=== PATIENT | male | born 1945 | race African-American/Black ===

== ENCOUNTER 2018-02-26 15:19 | Inpatient (IN) ==
[2018-02-26] MEDS ORDERED: Morphine Sulfate Inj 2 MG/ML Vial IV.PUSH ONE (15:46)
[2018-02-26] MEDS ORDERED: Morphine Inj 4 MG/ML Vial IV.PUSH ONE (16:00)
--- NOTE | 2018-02-26 16:07 | ED ---
HPI General Chief Complaint: Fall Stated Complaint: Fall Injury,Evac Time Seen by Provider: 02/26/18 15:28 Source: patient and RN notes reviewed Mode of arrival: ambulatory Limitations: no limitations History of Present Illness HPI Narrative: 72-year-old male presents to the emergency department for evaluation of right hip injury. Patient states he was discharged from [facility] today around 12 PM. He states he had stents placed in his left leg. He states that when he got home he went on to get the mail and he tripped and fell on the way to get to the mail and fell on his right hip, catching himself with his right wrist. He denies any head injury LOC. He denies any neck pain or back pain. No chest pain or abdominal pain. No vomiting. Current pain is 10/10 to the right hip. He denies any previous injury to the hip. He states that he is due to have stents placed in the right leg next. He states he was recently diagnosed with a foot drop. Moderate severity. Related Data Allergies Allergy/AdvReac Type Severity Reaction Status Date / Time No Known Allergies Allergy Verified 02/27/18 13:44 Review of Systems ROS: all other systems reviewed are negative [facility] Medical History Medical History Foot drop (Acute) Surgical History Surgical History S/P insertion of iliac artery stent (Acute) Family History Family History Other Breast cancer Diabetes Social History Social History Substance History: No History of Abuse Second Hand Smoke Exposure: No Smoking Status: Former smoker Tobacco Type: Cigarettes How Often Do You Have a Drink Containing Alcohol: Never Recent Travel in [facility] within the Last 8 Weeks: No Recent Out of Country Travel within the Last 8 Weeks: No Immunization History Tetanus Immunization: Unsure Exam Narrative Exam Narrative: GENERAL: Well-nourished, well-developed male patient, afebrile SKIN: Focused skin assessment warm/dry. HEAD: Normocephalic. Atraumatic EYES: No scleral icterus. No injection or drainage. NECK: Supple, trachea midline. No JVD or lymphadenopathy. CARDIOVASCULAR: Regular rate and rhythm without murmurs, gallops, or rubs. Right pedal pulse is 2+ RESPIRATORY: Breath sounds equal bilaterally. No accessory muscle use. Lung sounds are clear to auscultation GASTROINTESTINAL: Abdomen soft, non-tender, nondistended. MUSCULOSKELETAL: No cyanosis, or edema. Patient has tenderness over right hip to palpation BACK: Nontender without obvious deformity. No CVA tenderness. Course Initial Documented Vital Signs Temperature 99.0 F 02/26/18 15:24 Pulse Rate 74 02/26/18 15:24 Respiratory Rate 16 02/26/18 15:24 Blood Pressure 120/61 02/26/18 15:24 Pulse Oximetry 100 02/26/18 15:24 Last Documented Vital Signs Temperature 98.2 F 02/28/18 04:00 Pulse Rate 77 02/28/18 06:00 Respiratory Rate 23 02/28/18 04:00 Blood Pressure 100/50 L 02/28/18 04:00 Pulse Oximetry 95 02/28/18 04:00 Medical Decision Making RAMÓN Attestation RAMÓN supervised visit: Yes Attestation: Patient was not seen by me or presented by advance practitioner, I was available for consult MDM Narrative Medical decision making narrative: 72-year-old male presents to the emergency department for evaluation of trip and fall, right hip injury. He was just released today from [facility] after having stents placed to his left leg. X-ray of the pelvis, right femur, right wrist are ordered and pending. X-ray of the pelvis shows moderately angulated basicervical right femoral neck fracture. X-ray of the right femur shows acute displaced and angulated basicervical right proximal femur fracture. X-ray of the right wrist no acute fracture or dislocation. EKG, CBC, CMP, PTT, PT/INR, chest x-ray are ordered and pending. Dr. Batista accepted admission. I spoke to Dr. Joe, orthopedic surgery on- call who would like the patient be admitted to medicine, n.p.o. after midnight. Medical Screen Exam Complete: Yes Emergency Medical Condition: Yes Differential Diagnosis Differential Diagnosis: hip fracture vs. dislocation vs. contusion Medical Records Medical records reviewed: Yes I reviewed the patient's medical records. Lab Data Result diagrams: 02/27/18 07:03 02/27/18 07:03 Lab Results 02/26/18 02/26/18 02/26/18 Range/Units 17:15 17:15 17:15 WBC 7.2 (4.0-11.0) th/mm3 RBC 3.63 L (4.50-5.90) mil/mm3 Hgb 12.2 L (13.0-17.0) gm/dL Hct 35.7 L (39.0-51.0) % MCV 98.3 (80.0-100.0) fL MCH 33.6 (27.0-34.0) pg MCHC 34.2 (32.0-36.0) % RDW 15.5 (11.6-17.2) % Plt Count 151 (150-450) th/mm3 MPV 8.6 (7.0-11.0) fL Neut % (Auto) 75.2 H (16.0-70.0) % Lymph % (Auto) 12.8 (9.0-44.0) % Perry % (Auto) 11.3 H (0.0-8.0) % Eos % (Auto) 0.4 (0.0-4.0) % Baso % (Auto) 0.3 (0.0-2.0) % Neut # (Auto) 5.4 (1.8-7.7) th/mm3 Lymph # (Auto) 0.9 L (1.0-4.8) th/mm3 Perry # (Auto) 0.8 (0.0-0.9) th/mm3 Eos # (Auto) 0.0 (0.0-0.4) th/mm3 Baso # (Auto) 0.0 (0.0-0.2) th/mm3 WBC Differential . Differential Comment Auto diff final PT 10.3 (9.8-11.6) sec INR 1.0 Ratio APTT (23.4-31.7) sec Sodium 137 (136-145) meq/L Potassium 3.5 (3.5-5.1) meq/L Chloride 104 (98-107) meq/L Carbon Dioxide 25.0 (21.0-32.0) meq/L Anion Gap 8 (5-15) meq/L BUN 8 (7-18) mg/dL Creatinine 0.77 (0.60-1.30) mg/dL Estimated GFR Greater than 89 (>89) mL/min Random Glucose 88 (74-106) mg/dL Calcium 8.3 L (8.5-10.1) mg/dL Magnesium 2.0 (1.5-2.5) mg/dL Total Bilirubin 0.6 (0.2-1.0) mg/dL AST 36 (15-37) U/L ALT 20 (12-78) U/L Alkaline Phosphatase 71 (45-117) U/L Total Protein 6.6 (6.4-8.2) g/dL Albumin 2.7 L (3.4-5.0) g/dL Nasal Screen MRSA (PCR) (Negative) Blood Type Blood Type Recheck Antibody Screen MTS Gel Crossmatch 02/26/18 02/27/18 02/27/18 Range/Units 17:15 07:03 07:03 WBC 5.6 (4.0-11.0) th/mm3 RBC 3.43 L (4.50-5.90) mil/mm3 Hgb 11.7 L (13.0-17.0) gm/dL Hct 33.8 L (39.0-51.0) % MCV 98.3 (80.0-100.0) fL MCH 34.0 (27.0-34.0) pg MCHC 34.6 (32.0-36.0) % RDW 15.1 (11.6-17.2) % Plt Count 164 (150-450) th/mm3 MPV 7.7 (7.0-11.0) fL Neut % (Auto) 71.1 H (16.0-70.0) % Lymph % (Auto) 16.5 (9.0-44.0) % Perry % (Auto) 10.8 H (0.0-8.0) % Eos % (Auto) 1.1 (0.0-4.0) % Baso % (Auto) 0.5 (0.0-2.0) % Neut # (Auto) 4.0 (1.8-7.7) th/mm3 Lymph # (Auto) 0.9 L (1.0-4.8) th/mm3 Perry # (Auto) 0.6 (0.0-0.9) th/mm3 Eos # (Auto) 0.1 (0.0-0.4) th/mm3 Baso # (Auto) 0.0 (0.0-0.2) th/mm3 WBC Differential . Differential Comment Auto diff final PT (9.8-11.6) sec INR Ratio APTT 27.9 (23.4-31.7) sec Sodium 138 (136-145) meq/L Potassium 3.2 L (3.5-5.1) meq/L Chloride 106 (98-107) meq/L Carbon Dioxide 27.2 (21.0-32.0) meq/L Anion Gap 5 (5-15) meq/L BUN 9 (7-18) mg/dL Creatinine 0.68 (0.60-1.30) mg/dL Estimated GFR Greater than 89 (>89) mL/min Random Glucose 93 (74-106) mg/dL Calcium 8.6 (8.5-10.1) mg/dL Magnesium (1.5-2.5) mg/dL Total Bilirubin 0.6 (0.2-1.0) mg/dL AST 20 (15-37) U/L ALT 16 (12-78) U/L Alkaline Phosphatase 71 (45-117) U/L Total Protein 6.5 (6.4-8.2) g/dL Albumin 2.5 L (3.4-5.0) g/dL Nasal Screen MRSA (PCR) (Negative) Blood Type Blood Type Recheck Antibody Screen MTS Gel Crossmatch 02/27/18 02/27/18 02/27/18 Range/Units 07:03 15:15 22:00 WBC (4.0-11.0) th/mm3 RBC (4.50-5.90) mil/mm3 Hgb (13.0-17.0) gm/dL Hct (39.0-51.0) % MCV (80.0-100.0) fL MCH (27.0-34.0) pg MCHC (32.0-36.0) % RDW (11.6-17.2) % Plt Count (150-450) th/mm3 MPV (7.0-11.0) fL Neut % (Auto) (16.0-70.0) % Lymph % (Auto) (9.0-44.0) % Perry % (Auto) (0.0-8.0) % Eos % (Auto) (0.0-4.0) % Baso % (Auto) (0.0-2.0) % Neut # (Auto) (1.8-7.7) th/mm3 Lymph # (Auto) (1.0-4.8) th/mm3 Perry # (Auto) (0.0-0.9) th/mm3 Eos # (Auto) (0.0-0.4) th/mm3 Baso # (Auto) (0.0-0.2) th/mm3 WBC Differential Differential Comment PT (9.8-11.6) sec INR Ratio APTT (23.4-31.7) sec Sodium (136-145) meq/L Potassium (3.5-5.1) meq/L Chloride (98-107) meq/L Carbon Dioxide (21.0-32.0) meq/L Anion Gap (5-15) meq/L BUN (7-18) mg/dL Creatinine (0.60-1.30) mg/dL Estimated GFR (>89) mL/min Random Glucose (74-106) mg/dL Calcium (8.5-10.1) mg/dL Magnesium (1.5-2.5) mg/dL Total Bilirubin (0.2-1.0) mg/dL AST (15-37) U/L ALT (12-78) U/L Alkaline Phosphatase (45-117) U/L Total Protein (6.4-8.2) g/dL Albumin (3.4-5.0) g/dL Nasal Screen MRSA (PCR) Not detected (Negative) Blood Type O Positive Blood Type Recheck Required Antibody Screen Negative MTS Gel Crossmatch See Detail Imaging Data Radiologist's impression: Femur X-Ray 02/26/18 15:46 CONCLUSION: Acute displaced and angulated basicervical right proximal femur fracture. Pelvis X-Ray 02/26/18 15:46 CONCLUSION: Moderately angulated basicervical right femoral neck fracture Wrist X-Ray 02/26/18 15:46 CONCLUSION: 1. No acute fracture or dislocation. 2. Mild degenerative changes involving the radiocarpal space. Chest X-Ray 02/26/18 17:03 CONCLUSION: No acute cardiopulmonary findings. Hip X-Ray 02/27/18 00:00 CONCLUSION: 1. Right hip arthroplasty in anatomic alignment without acute fracture. Hip CT 02/27/18 06:12 CONCLUSION: 1. Acute comminuted mildly displaced fracture involving the neck of the right proximal femur. 2. Mild soft tissue swelling involving the left groin. Discharge Plan Discharge Disposition Patient Disposition: ED Admit(ED Internal Use Only) Discharge Order Discharge Orders: ED Use Only Admit Order (Routine); Ordered 02/26/18 Ordered By: Diana Valdez Discharge Details Diagnosis: Closed fracture of proximal end of right femur Physicians Team ED Provider: Bertin Quintero ED Midlevel Provider: Diana Valdez Primary Care Provider: [facility] Attending Provider: Judah Guerrero Other Providers: Jodie Joe Status ED Status: Left Department Discharge Information Discharge Date/Time: 02/26/18 20:01
--- NOTE | 2018-02-26 16:59 | XR ---
EXAM DATE: 02/26/2018 4:48 PM EST AGE/SEX: 72 years / Male INDICATIONS: Pain in right hip. Post fall this afternoon. CLINICAL DATA: This is the patient's initial encounter. Patient reports that signs and symptoms have been present for 1 day and indicates a pain score of 7/10. MEDICAL/SURGICAL HISTORY: None. None. COMPARISON: [facility], XR PELVIS AP, 12/26/2017. . FINDINGS: There is a moderately angulated basicervical right femoral neck fracture. The right femoral head is n ormally situated in the acetabulum. The contralateral left hip is intact. No displaced pelvic fractur e is identified. There is degenerative change in the spine and hips. Atherosclerotic vascular calcifi cations and previous left iliac stenting. Surgical clips overlying the left groin. CONCLUSION: Moderately angulated basicervical right femoral neck fracture Electronically signed by: Herson Dhaliwal MD Board Certified Radiologist 02/26/2018 4:57 PM EST
--- NOTE | 2018-02-26 17:05 | XR ---
EXAM DATE: 02/26/2018 4:52 PM EST AGE/SEX: 72 years / Male INDICATIONS: Pain in right hip. Post fall this afternoon. CLINICAL DATA: This is the patient's initial encounter. Patient reports that signs and symptoms have been present for 1 day and indicates a pain score of 7/10. MEDICAL/SURGICAL HISTORY: None. None. [place] [facility] [place] [facility] [place]. . FINDINGS: There is an acute displaced and angulated basicervical right proximal femur fracture. CONCLUSION: Acute displaced and angulated basicervical right proximal femur fracture. Electronically signed by: Silvestre Pascal MD Board Certified Radiologist 02/26/2018 5:04 PM EST
--- NOTE | 2018-02-26 17:13 | XR ---
EXAM DATE: 02/26/2018 4:49 PM EST AGE/SEX: 72 years / Male INDICATIONS: Pain in right wrist post fall this afternoon. CLINICAL DATA: This is the patient's initial encounter. Patient reports that signs and symptoms have been present for 1 day and indicates a pain score of 3/10. MEDICAL/SURGICAL HISTORY: None. None. COMPARISON: No prior exams available for comparison. FINDINGS: Bony structures are intact and in normal alignment. Mild degenerative changes are noted involving the radiocarpal space. Osseous density is normal. Soft tissues are unremarkable. No radiopaque foreign bodies seen. CONCLUSION: 1. No acute fracture or dislocation. 2. Mild degenerative changes involving the radiocarpal space. Electronically signed by: Silvestre Pascal MD Board Certified Radiologist 02/26/2018 5:12 PM EST
--- NOTE | 2018-02-26 17:26 | XR ---
EXAM DATE: 02/26/2018 5:19 PM EST AGE/SEX: 72 years / Male INDICATIONS: Patient fell and broke his right hip. CLINICAL DATA: This is the patient's initial encounter. Patient reports that signs and symptoms have been present for 1 day and indicates a pain score of 4/10. MEDICAL/SURGICAL HISTORY: None. None. COMPARISON: No comparison available at the time of dictation. FINDINGS: A single AP view of the chest demonstrates the lungs to be symmetrically aerated without evidence of mass, focal consolidation, or effusion. The cardiomediastinal contours are within normal limits. Os seous structures are grossly intact. CONCLUSION: No acute cardiopulmonary findings. Electronically signed by: Reny Borrego MD Board Certified Radiologist 02/26/2018 5:25 PM EST
--- NOTE | 2018-02-26 17:26 | P.HP ---
History of Present Illness Primary Care Physician: [facility] Chief Complaint: Right foot pain History of Present Illness: 72-year-old -Citizen Of [place] male for past medical history of PAD, status post left femoral endarterectomy secondary to ischemic limb 02/24/18 and discharged home on Plavix from a local hospital, was brought to the ED today for evaluation of right foot pain and injury following a mechanical fall. Patient state, as he stood up to go to [place], he tripped and fell onto the ground hitting the right side of his hip and denies any head trauma or loss of consciousness. Immediately noted severe right lower extremity pain and was unable to stand up. The pain was rated 10 out of 10 in intensity. He denies any headaches, chest pain or shortness of breath. Patient also has a history of right lower extremity footdrop. Otherwise is stable. 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 - Medical History Medical History: Medical History (Last Reviewed 02/26/18 @ 16:04 by MARSHA Booth) Foot drop - Surgical History Surgical History: Surgical History (Last Reviewed 02/26/18 @ 16:04 by MARSHA Booth) S/P insertion of iliac artery stent - Family History Family History: Family History (Last Updated 02/26/18 @ 17:40 by Ted Batista MD) Other Breast cancer Diabetes - Tobacco History Second Hand Smoke Exposure: Yes Tobacco Use In Past 30 Days: Yes Smoking Status: Current every day smoker Tobacco Type: Cigarettes - Alcohol History How Often Do You Have a Drink Containing Alcohol: Never - Travel History Recent Travel in the [place] Within the Last 8 Weeks: No Recent Travel Out of the Country Within the Last 8 Weeks: No - Immunization History Tetanus Immunization: Unsure Medications and Allergies Allergies Allergy/AdvReac Type Severity Reaction Status Date / Time No Known Allergies Allergy Uncoded 07/04/14 09:28 Home Medications Medication Instructions Recorded Confirmed Type No Known Home Medications 02/26/18 02/26/18 History Exam Vital signs: Vital Signs 02/26/18 15:24 02/26/18 15:33 Temperature 99.0 F Pulse Rate 74 80 Respiratory Rate 16 16 Blood Pressure 120/61 Pulse Oximetry 100 100 Intake & Output 02/25/18 02/26/18 02/26/18 18:59 06:59 18:59 Weight 68.039 kg Narrative: GENERAL: NAD SKIN: Warm and dry. HEAD: Atraumatic. Normocephalic. EYES: Pupils equal and round. No scleral icterus. No injection or drainage. ENT: No nasal bleeding or discharge. Mucous membranes pink and moist. NECK: Trachea midline. No JVD. CARDIOVASCULAR: Regular rate and rhythm. RESPIRATORY: No accessory muscle use. Clear to auscultation. Breath sounds equal bilaterally. GASTROINTESTINAL: Abdomen soft, non-tender, nondistended. Hepatic and splenic margins not palpable. MUSCULOSKELETAL: Extremities without clubbing, cyanosis, or edema. No obvious deformities. Right lower extremity with limited range of motion, external rotated and tender to palpation at the hip joint. NEUROLOGICAL: Awake and alert. No obvious cranial nerve deficits. Motor grossly within normal limits. Five out of 5 muscle strength in the arms and legs. Normal speech. PSYCHIATRIC: Appropriate mood and affect; insight and judgment normal. Results - Labs CBC & Chem 7: 02/26/18 17:15 02/26/18 17:15 - Imaging Impressions Femur X-Ray 02/26/18 15:46 CONCLUSION: Acute displaced and angulated basicervical right proximal femur fracture. Pelvis X-Ray 02/26/18 15:46 CONCLUSION: Moderately angulated basicervical right femoral neck fracture Wrist X-Ray 02/26/18 15:46 CONCLUSION: 1. No acute fracture or dislocation. 2. Mild degenerative changes involving the radiocarpal space. Caprini VTE Risk Assessment Caprini VTE Risk Assessment: Moderate/High Risk (score >= 2) Caprini Risk Assessment Model: Point Value = 1 Point Value = 2 Point Value = 3 Point Value = 5 Age 41-60 Minor surgery BMI > 25 kg/m2 Swollen legs Varicose veins or History of unexplained or recurrent spontaneous Oral contraceptives or hormone replacement Sepsis (< 1 month) Serious lung disease, including pneumonia (< 1 month) Abnormal pulmonary function Acute myocardial infarction Congestive heart failure (< 1 month) History of inflammatory bowel disease Medical patient at bed rest Age 61-74 Arthroscopic surgery Major open surgery (> 45 min) Laparoscopic surgery (> 45 min) Malignancy Confined to bed (> 72 hours) Immobilizing plaster cast Central venous access Age >= 75 History of VTE Family history of VTE Factor V Leiden Prothrombin [id number] Lupus anticoagulant Anticardiolipin antibodies Elevated serum homocysteine Heparin-induced thrombocytopenia Other congenital or acquired thrombophilia Stroke (< 1 month) Elective arthroplasty Hip, pelvis, or leg fracture Acute spinal cord injury (< 1 month) Prophylaxis Regimen: Total Risk Factor Score Risk Level Prophylaxis Regimen 0-1 Low Early ambulation 2 Moderate Order ONE of the following: *Sequential Compression Device (SCD) *Heparin 5000 units SQ BID 3-4 Higher Order ONE of the following medications: *Heparin 5000 units SQ TID *Enoxaparin/Lovenox 40 mg SQ daily (WT < 150 kg, CrCl > 30 mL/min) *Enoxaparin/Lovenox 30 mg SQ daily (WT < 150 kg, CrCl > 10-29 mL/min) *Enoxaparin/Lovenox 30 mg SQ BID (WT < 150 kg, CrCl > 30 mL/min) AND/OR *Sequential Compression Device (SCD) 5 or more Highest Order ONE of the following medications: *Heparin 5000 units SQ TID (Preferred with Epidurals) *Enoxaparin/Lovenox 40 mg SQ daily (WT < 150 kg, CrCl > 30 mL/min) *Enoxaparin/Lovenox 30 mg SQ daily (WT < 150 kg, CrCl > 10-29 mL/min) *Enoxaparin/Lovenox 30 mg SQ BID (WT < 150 kg, CrCl > 30 mL/min) AND *Sequential Compression Device (SCD) Assessment and Plan - Plan 72-year-old man with Right femoral neck fracture Status post mechanical fall Femur X-Ray 02/26/18 noted and reviewed with finding of acute displaced and angulated basicervical right proximal femur fracture. Pelvis X-Ray with finding of Moderately angulated basicervical right femoral neck fracture Consult orthopedic surgery N.p.o. after midnight, IV fluid hydration, pain management accordingly DVT prophylaxis postprocedure per orthopedic surgery PT consult postprocedure for treatment and eval Peripheral artery disease Status post right femoral endarterectomy Will hold Plavix secondary to above CBC, CMP pending DVT prophylaxis: Post procedure per orthopedic surgery
[2018-02-26] MEDS ORDERED: Naloxone Inj 0.4 MG/ML Vial IV.PUSH PRN (17:29)
[2018-02-26] MEDS ORDERED: Bisacodyl 10 MG Supp RECTAL PRN (17:29)
[2018-02-26] MEDS ORDERED: Acetaminophen 325 MG Tablet PO PRN ×2 (17:29)
[2018-02-26 17:35] LABS: Baso % (Auto) 0.3 % (0.0-2.0); Eos % (Auto) 0.4 % (0.0-4.0); Hematocrit 35.7 % (39.0-51.0); Hemoglobin 12.2 gm/dL (13.0-17.0); Lymph # (Auto) 0.9 th/mm3 (1.0-4.8); Lymph % (Auto) 12.8 % (9.0-44.0); Mean Corpuscular HGB Conc 34.2 % (32.0-36.0); Mean Corpuscular Hemoglobin 33.6 pg (27.0-34.0); Mean Corpuscular Volume 98.3 fL (80.0-100.0); Mean Platelet Volume 8.6 fL (7.0-11.0); Mono # (Auto) 0.8 th/mm3 (0.0-0.9); Mono % (Auto) 11.3 % (0.0-8.0); Neut # (Auto) 5.4 th/mm3 (1.8-7.7); Neut % (Auto) 75.2 % (16.0-70.0); Platelet Count 151 th/mm3 (150-450); Red Blood Count 3.63 mil/mm3 (4.50-5.90); Red Cell Distribution Width 15.5 % (11.6-17.2); White Blood Count 7.2 th/mm3 (4.0-11.0)
[2018-02-26 17:55] LABS: Alanine Aminotransferase 20 U/L (12-78)
[2018-02-26 17:57] LABS: Albumin 2.7 g/dL (3.4-5.0); Anion Gap 8 meq/L (5-15); Aspartate Aminotransferase 36 U/L (15-37); Blood Urea Nitrogen 8 mg/dL (7-18); Calcium 8.3 mg/dL (8.5-10.1); Chloride 104 meq/L (98-107); Glomerular Filtration Rate Greater Than 89 mL/min (>89); Glucose,Random 88 mg/dL (74-106); Sodium 137 meq/L (136-145)
[2018-02-26 17:58] LABS: Alkaline Phosphatase 71 U/L (45-117); Total Protein 6.6 g/dL (6.4-8.2)
[2018-02-26 18:03] LABS: Prothrombin Time 10.3 sec (9.8-11.6)
[2018-02-26 18:30] LABS: Potassium 3.5 meq/L (3.5-5.1)
[2018-02-26] MEDS: Senna/Docusate Sodium 8.6/50 MG Tablet PO SCH (21:18)
[2018-02-27] MEDS ORDERED: Chlorhexidine Gluconate 2% 1 Pack (2 Cloths) TOPICAL ONE (02:15)
[2018-02-27] MEDS ORDERED: Sodium Chlor 0.9% Inj 500 ML IV.CONT ONE (02:15)
--- NOTE | 2018-02-27 06:34 | P.CONOP ---
[facility] Orthopedics Consult Note - [facility] Consult date: 02/27/18 Consult reason: fracture Chief complaint: right proximal femur fracture Narrative: 72-year-old -[place] male for past medical history of PAD, status post left femoral endarterectomy secondary to ischemic limb 02/24/18 and discharged home on Plavix from a [facility], was brought to the ED today for evaluation of right foot pain and injury following a mechanical fall. Patient states, as he stood up to go to [place], he tripped and fell onto the ground hitting the right side of his hip and denies any head trauma or loss of consciousness. Immediately noted severe right lower extremity pain and was unable to stand up. The pain was rated 10 out of 10 in intensity. He denies any headaches, chest pain or shortness of breath. Patient states he has developed a right foot drop over the last week or 2. He states this is why he had a mechanical trip or fall. He denies any other extremity injury. Review of Systems Denies fevers, chills, nausea, vomiting. Denies chest pain, cough, shortness of breath. Denies abdominal pain or change in urination. Denies back pain, weakness, numbness or tingling. Denies dizziness, blurry vision or throat pain. Reports right hip pain and baseline (1-2 weeks) foot drop on the right side PMFSH - History History Provided By: Patient - Medical History Medical History: Medical History (Last Reviewed 02/26/18 @ 16:04 by MARSHA Booth) Foot drop - Surgical History Surgical History: Surgical History (Last Reviewed 02/26/18 @ 16:04 by MARSHA Booth) S/P insertion of iliac artery stent - Family History Family History: Family History (Last Updated 02/26/18 @ 17:40 by Ted Batista MD) Other Breast cancer Diabetes - Tobacco History Second Hand Smoke Exposure: No Tobacco Use In Past 30 Days: Yes Smoking Status: Former smoker Tobacco Type: Cigarettes - Alcohol History How Often Do You Have a Drink Containing Alcohol: Never - Substance Use History Substance History: No History of Abuse - Travel History Recent Travel in the [place] Within the Last 8 Weeks: No Recent Travel Out of the Country Within the Last 8 Weeks: No - Immunization History Tetanus Immunization: Unsure Hx Influenza Vaccine This Season: Yes Medications and Allergies Active Medications: Active Medications Acetaminophen (Tylenol) 650 mg PO Q6HR PRN PRN Reason: PAIN SCALE 1 TO 2 Acetaminophen (Tylenol) 650 mg PO Q4H PRN PRN Reason: Temp > 100.4 Hydrocodone Bitart/Acetaminophen ([place] 5/325) 1 tab PO Q4H PRN PRN Reason: PAIN 3-10 Last Admin: 02/27/18 04:43 Dose: 1 tab Al Hydroxide/Mg Hydroxide (Milk Of Magnesia Liq) 30 ml PO Q12H PRN PRN Reason: Mild Constipation Albuterol (Duoneb Neb (Prn)) 1 ampul NEB Q2HR NEB PRN PRN Reason: SHORTNESS OF BREATH Bisacodyl (Dulcolax Supp) 10 mg RECTAL DAILY PRN PRN Reason: SEVERE CONSITIPATION Clonidine HCl (Catapres) 0.2 mg PO Q6H PRN PRN Reason: SBP>160, DBP>90 Lactated Ringer's (Lr 1000 Ml Inj) 1,000 mls @ 30 mls/hr IV.CONT .Q24H ONE Stop: 02/28/18 02:14 Sodium Chloride (Ns Inj) 500 mls @ 30 mls/hr IV.CONT .[id number] ONE Stop: 02/27/18 18:54 Last Admin: 02/27/18 06:27 Dose: Not Given Lactulose (Lactulose Liq) 30 ml PO DAILY PRN PRN Reason: SEVERE CONSITIPATION Naloxone HCl (Narcan Inj) 0.4 mg IV.PUSH UNSCH PRN PRN Reason: SEE LABEL COMMENTS Ondansetron HCl (Zofran Inj) 4 mg IV.PUSH Q6H PRN PRN Reason: NAUSEA OR VOMITING Senna/Docusate Sodium (Lindsay-Colace) 1 tab PO BID [facility] Last Admin: 02/26/18 21:18 Dose: 1 tab Sennosides (Senokot) 17.2 mg PO Q12H PRN PRN Reason: Moderate Constipation Sodium Chloride (Ns Flush) 2 ml IV.FLUSH BID [facility] Last Admin: 02/26/18 22:33 Dose: 2 ml Sodium Chloride (Ns Flush) 2 ml IV.FLUSH PRN PRN PRN Reason: FLUSH AFTER USING IV ACCESS Allergies Allergy/AdvReac Type Severity Reaction Status Date / Time No Known Allergies Allergy Uncoded 07/04/14 09:28 Home Medications Medication Instructions Recorded Confirmed Type No Known Home Medications 02/26/18 02/26/18 History Exam Vital signs: Vital Signs 02/26/18 15:24 02/26/18 15:33 02/26/18 18:19 Temperature 99.0 F Pulse Rate 74 80 66 Respiratory Rate 16 16 18 Blood Pressure 120/61 Pulse Oximetry 100 100 99 02/26/18 20:02 02/26/18 23:19 02/27/18 03:30 Temperature 99.2 F 99.0 F 98.5 F Pulse Rate 85 82 80 Respiratory Rate 17 17 16 Blood Pressure 110/76 136/66 126/74 Pulse Oximetry 95 97 97 Intake & Output 02/26/18 02/26/18 02/27/18 06:59 18:59 06:59 Output Total 600 / 600 Balance -600 / -600 Weight 68.039 kg 69.3 kg Output: Urine 600 / 600 Other: Date of Last Bowel Movement 02/25/18 Narrative: Awake, alert, no acute distress Normocephalic Pupils equal No JVD Moist mucous membranes Nonlabored respirations Soft nontender abdomen Regular rate Right upper extremity: No tenderness to palpation or visible deformities. Full active range of motion and strength throughout. Sensation intact. Brisk cap refill. Left upper extremity:No tenderness to palpation or visible deformities. Full active range of motion and strength throughout. Sensation intact. Brisk cap refill. Right lower extremity: Positive logroll. Unable to assess hip and knee range of motion due to discomfort. Patient has positive plantarflexion and FHL but is unable to fire his tib ant or EHL. Patient reports decreased sensation over the dorsum of his foot. Brisk cap refill Left lower extremity:No tenderness to palpation or visible deformities. Full active range of motion and strength throughout. Sensation intact. Brisk cap refill. No rash Normal affect Results - Labs Result Diagrams: 02/26/18 17:15 02/26/18 17:15 Labs: Laboratory Results - last 24 hr 02/26/18 02/26/18 02/26/18 17:15 17:15 17:15 WBC 7.2 RBC 3.63 L Hgb 12.2 L Hct 35.7 L MCV 98.3 MCH 33.6 MCHC 34.2 RDW 15.5 Plt Count 151 MPV 8.6 Neut % (Auto) 75.2 H Lymph % (Auto) 12.8 [place] % (Auto) 11.3 H Eos % (Auto) 0.4 Baso % (Auto) 0.3 Neut # (Auto) 5.4 Lymph # (Auto) 0.9 L [place] # (Auto) 0.8 Eos # (Auto) 0.0 Baso # (Auto) 0.0 WBC Differential . Differential Comment Auto diff final PT 10.3 INR 1.0 APTT Sodium 137 Potassium 3.5 Chloride 104 Carbon Dioxide 25.0 Anion Gap 8 BUN 8 Creatinine 0.77 Estimated GFR Greater than 89 Random Glucose 88 Calcium 8.3 L Magnesium 2.0 Total Bilirubin 0.6 AST 36 ALT 20 Alkaline Phosphatase 71 Total Protein 6.6 Albumin 2.7 L 02/26/18 17:15 WBC RBC Hgb Hct MCV MCH MCHC RDW Plt Count MPV Neut % (Auto) Lymph % (Auto) [place] % (Auto) Eos % (Auto) Baso % (Auto) Neut # (Auto) Lymph # (Auto) [place] # (Auto) Eos # (Auto) Baso # (Auto) WBC Differential Differential Comment PT INR APTT 27.9 Sodium Potassium Chloride Carbon Dioxide Anion Gap BUN Creatinine Estimated GFR Random Glucose Calcium Magnesium Total Bilirubin AST ALT Alkaline Phosphatase Total Protein Albumin - Diagnostic results Imaging: Impressions Femur X-Ray 02/26/18 15:46 CONCLUSION: Acute displaced and angulated basicervical right proximal femur fracture. Pelvis X-Ray 02/26/18 15:46 CONCLUSION: Moderately angulated basicervical right femoral neck fracture Wrist X-Ray 02/26/18 15:46 CONCLUSION: 1. No acute fracture or dislocation. 2. Mild degenerative changes involving the radiocarpal space. Chest X-Ray 02/26/18 17:03 CONCLUSION: No acute cardiopulmonary findings. Assessment and Plan - Assessment and Plan 72-year-old gentleman now approximately 3 days status post left femoral endarterectomy for ischemic limb with acute mechanical fall yesterday due to right foot drop with a closed right basicervical femoral neck fracture Radiographs reviewed by myself and with the patient. I discussed with the patient my concerns regarding his fracture and that I do believe a CT scan is required to better delineate the fracture pattern and whether fixation with intramedullary nail versus possible right hip hemiarthroplasty is necessary. Patient is n.p.o. for surgery later today. However, should he require a right hip hemiarthroplasty, given he received Plavix prior to discharge yesterday, he may require delay until Friday. However, should he require intramedullary nail of his right basicervical femoral neck fracture, certainly could consider surgery later today. Risks, benefits, alternatives of the procedures were discussed with the patient. Risks including but not limited to: Infection, nonunion or malunion, hardware malposition or failure, persistent hip pain and/or stiffness, hip instability with possible dislocations, periprosthetic complication including periprosthetic fracture, neurovascular injury, possible need for further surgery , and other unforeseen complications were all discussed with the patient. At this time he is consented to the above-mentioned procedure. Plan is for CT scan this morning with possible surgery this afternoon. Patient should be n.p.o. since midnight.
[2018-02-27 07:56] LABS: Baso % (Auto) 0.5 % (0.0-2.0); Eos # (Auto) 0.1 th/mm3 (0.0-0.4); Eos % (Auto) 1.1 % (0.0-4.0); Hematocrit 33.8 % (39.0-51.0); Hemoglobin 11.7 gm/dL (13.0-17.0); Lymph # (Auto) 0.9 th/mm3 (1.0-4.8); Lymph % (Auto) 16.5 % (9.0-44.0); Mean Corpuscular HGB Conc 34.6 % (32.0-36.0); Mean Corpuscular Volume 98.3 fL (80.0-100.0); Mean Platelet Volume 7.7 fL (7.0-11.0); Mono # (Auto) 0.6 th/mm3 (0.0-0.9); Mono % (Auto) 10.8 % (0.0-8.0); Neut % (Auto) 71.1 % (16.0-70.0); Platelet Count 164 th/mm3 (150-450); Red Blood Count 3.43 mil/mm3 (4.50-5.90); Red Cell Distribution Width 15.1 % (11.6-17.2); White Blood Count 5.6 th/mm3 (4.0-11.0)
--- NOTE | 2018-02-27 08:09 | CT ---
EXAM DATE: 02/27/2018 8:02 AM EST AGE/SEX: 72 years / Male INDICATIONS: Fell yesterday. Right hip pain. CLINICAL DATA: This is the patient's initial encounter. Patient reports that signs and symptoms have been present for 2 days and indicates a pain score of 8/10. MEDICAL/SURGICAL HISTORY: None. . Iliac artery stent RADIATION DOSE: 9.91 CTDI (mGy) COMPARISON: C, PELVIS AP 1V, 02/26/2018. . TECHNIQUE: Multiple contiguous axial images were acquired using a multirow detector CT scanner witho ut contrast. Multiplanar reconstruction was performed in the sagittal and coronal planes. Using aut omated exposure control and adjustment of the mA and/or kV according to patient size, radiation dose was kept as low as reasonably achievable to obtain optimal diagnostic quality images. DICOM format i mage data is available electronically for review and comparison. FINDINGS: Bones: There is evidence of an acute comminuted mildly displaced fracture involving the neck of the right proximal femur . Joints: No significant arthropathy or bony hypertrophy is seen. The articular surface of the femora l head is smooth. Soft Tissues: Mild soft tissue swelling is noted involving the left groin. Other: No foreign bodies seen. CONCLUSION: 1. Acute comminuted mildly displaced fracture involving the neck of the right proximal femur. 2. Mild soft tissue swelling involving the left groin. Electronically signed by: Silvestre Pascal MD Board Certified Radiologist 02/27/2018 8:07 AM EST
[2018-02-27 08:30] LABS: Alanine Aminotransferase 16 U/L (12-78); Albumin 2.5 g/dL (3.4-5.0); Anion Gap 5 meq/L (5-15); Aspartate Aminotransferase 20 U/L (15-37); Blood Urea Nitrogen 9 mg/dL (7-18); Calcium 8.6 mg/dL (8.5-10.1); Carbon Dioxide 27.2 meq/L (21.0-32.0); Chloride 106 meq/L (98-107); Glomerular Filtration Rate Greater Than 89 mL/min (>89); Glucose,Random 93 mg/dL (74-106); Potassium 3.2 meq/L (3.5-5.1); Sodium 138 meq/L (136-145)
[2018-02-27 08:33] LABS: Alkaline Phosphatase 71 U/L (45-117); Total Protein 6.5 g/dL (6.4-8.2)
[2018-02-27] MEDS: Senna/Docusate Sodium 8.6/50 MG Tablet PO SCH ×2 (09:47→21:44)
--- NOTE | 2018-02-27 11:38 | P.PNIM ---
Subjective Interval history: Follow-up for right femoral fracture status post mechanical fall, right foot drop, PAD status post left femoral endarterectomy secondary to ischemia. Patient seen and examined laying in bed, complains of right hip pain of 5 out of 10 while laying and not moving however 10 out of 10 with movement. Patient stated he fell at home in the garage and hit the concrete. Patient also complaining of right wrist pain where he used to hold on during her fall. Patient is n.p.o. right now awaiting for surgical procedure later today Patient denies any fever or chills. Patient denies any headache or dizziness, denies any chest pain or shortness of breath, Physical Exam Vital signs: Vital Signs 02/26/18 15:24 02/26/18 15:33 02/26/18 18:19 Temperature 99.0 F Pulse Rate 74 80 66 Respiratory Rate 16 16 18 Blood Pressure 120/61 Pulse Oximetry 100 100 99 02/26/18 20:02 02/26/18 23:19 02/27/18 03:30 Temperature 99.2 F 99.0 F 98.5 F Pulse Rate 85 82 80 Respiratory Rate 17 17 16 Blood Pressure 110/76 136/66 126/74 Pulse Oximetry 95 97 97 02/27/18 07:26 Temperature 98.3 F Pulse Rate 71 Respiratory Rate 17 Blood Pressure 126/62 Pulse Oximetry 98 Intake & Output 02/26/18 02/27/18 02/27/18 18:59 06:59 18:59 Output Total 600 / 600 Balance -600 / -600 Weight 68.039 kg 69.3 kg Output: Urine 600 / 600 Other: Date of Last Bowel Movement 02/25/18 02/24/18 Narrative: GENERAL: Well-developed, well-nourished, -Gabones[place] male laying in bed in no acute distress SKIN: Warm and dry. HEAD: Atraumatic. Normocephalic. EYES: Pupils equal and round. No scleral icterus. No injection or drainage. ENT: No nasal bleeding or discharge. Mucous membranes pink and moist. NECK: Trachea midline. No JVD. CARDIOVASCULAR: Regular rate and rhythm. RESPIRATORY: No accessory muscle use. Clear to auscultation. Breath sounds equal bilaterally. GASTROINTESTINAL: Abdomen soft, non-tender, nondistended. Hepatic and splenic margins not palpable. MUSCULOSKELETAL: Extremities without clubbing, cyanosis,. Right wrist edema, right hip edema, right foot drop. Left groin incision dressed dry and intact, tender on palpation. NEUROLOGICAL: Awake and alert. No obvious cranial nerve deficits. Motor grossly within normal limits. Five out of 5 muscle strength in the arms and legs. Normal speech. PSYCHIATRIC: Appropriate mood and affect; insight and judgment normal. Results Labs CBC & Chem 7: 02/27/18 07:03 02/27/18 07:03 Imaging Imaging: Impressions Femur X-Ray 02/26/18 15:46 CONCLUSION: Acute displaced and angulated basicervical right proximal femur fracture. Pelvis X-Ray 02/26/18 15:46 CONCLUSION: Moderately angulated basicervical right femoral neck fracture Wrist X-Ray 02/26/18 15:46 CONCLUSION: 1. No acute fracture or dislocation. 2. Mild degenerative changes involving the radiocarpal space. Chest X-Ray 02/26/18 17:03 CONCLUSION: No acute cardiopulmonary findings. Hip CT 02/27/18 06:12 CONCLUSION: 1. Acute comminuted mildly displaced fracture involving the neck of the right proximal femur. 2. Mild soft tissue swelling involving the left groin. Assessment and Plan Plan This is a 72-year-old man with past medical history of PAD, status post left femoral endarterectomy secondary to ischemic limb 02/24/18 and discharged home on Plavix from a local hospital, was brought to the ED today for evaluation of right foot pain and injury following a mechanical fall. Right femoral neck fracture -Status post mechanical fall -Femur X-Ray 02/26/18 noted and reviewed with finding of acute displaced and angulated basicervical right proximal femur fracture. -Pelvis X-Ray with finding of Moderately angulated basicervical right femoral neck fracture -Consult orthopedic surgery: Appreciate recommendation -Keep n.p.o. for plan for surgery today pending CT scan -DVT prophylaxis postprocedure per orthopedic surgery -PT consult postprocedure for treatment and eval -c/o right wrist pain and edema, Wrist XRAY showed no fracture or dislocation Peripheral artery disease -Status post left femoral endarterectomy on 02/24/18 -Will hold Plavix secondary to planned surgery -request hospital records from [facility]/procedure report DVT prophylaxis: Post procedure per orthopedic surgery Progress Note: Quality VTE Deep Vein Thrombosis/Pulmonary Embolism Present on Admission: No
--- NOTE | 2018-02-27 14:25 | ECG ---
Date Performed: 02/27/2018 Time Performed: 02:17:10 PTAGE: 72 years EKG: Sinus rhythm Normal ECG Compared to prior electrocardiogram, rate has decreased . PREVIOUS TRACING : 06/03/2013 13.55 DOCTOR: Andrea Burleson Interpretating Date/Time 02/27/2018 14:25:08
[2018-02-27] MEDS ORDERED: ceFAZolin Inj 1 GM Vial (Addvantage) IV.SIG ONE (14:31)
[2018-02-27] MEDS ORDERED: fentaNYL Citrate Inj 100 MCG/2 ML Ampul ONE ×2 (16:56→18:24)
--- NOTE | 2018-02-27 17:44 | P.OP ---
Date of procedure: 02/27/18 Procedure: Right hip hemiarthroplasty Implants: Depuy Corail hip system cementless size 11 femoral stem standard collar 50 mm bipolar head Anesthesia: GETA Surgeon: Jodie Joe MD Estimated blood loss (mL): 150 Pathology: none sent Operation and Findings: Indications for procedure: Patient is a 72 year-old male who presented to the hospital after mechanical trip and fall with acute onset of right hip pain and inability to bear weight. Patient was found to have a right displaced femoral neck fracture. Recommendation for right hip hemiarthroplasty. Risks of surgery including but not limited to: Infection, periprosthetic fracture, hardware malposition or failure, persistent hip pain and/or stiffness, hip weakness, hip instability and/or dislocation, neurovascular injury, possible need for further surgery, limb length discrepancy, and other unforeseen complications were all discussed with the patient. At this time he is agreed to the above-mentioned procedure. Description of procedure: Patient was brought back to the operating room where general anesthesia then ensued. Patient was carefully positioned on the operating room table with his right hip up in a lateral position on a pegboard. All bony prominences were well padded and an axillary roll was placed. Patient was prepped and draped in standard sterile fashion. Preoperative antibiotics were given within 1 hour of incision. A timeout was performed to identify the correct patient, side, site and procedure to be performed. An approximately 5-6 inch incision was made over the greater trochanter with sharp dissection through the skin and subcutaneous tissue down to fascia. Hemostasis was then achieved with electrocautery. The fascia was then incised in line with the skin incision. A Charnley retractor was then placed. The anterior third of the gluteus medius was then elevated subperiosteally off the greater trochanter. This allowed access to the anterior hip capsule which was then incised. The displaced femoral neck fracture was immediately encountered. The lesser trochanter was identified and a femoral neck cut was made approximately 1 cm above the lesser trochanter. The femoral head was then removed and sized on the back table. The leg was then externally rotated and flexed to allow access to the femoral canal. The femur was subsequently reamed and broached. The femur was calcar planed over the broach. A trial neck and head was then placed on the broach and the hip was attempted to be reduced. At this time, there was question of a small calcar crack. I felt it prudent at that time to pass a cable just proximal to the lesser trochanter to ensure there was no significant calcar crack or propagation. The hip was then reduced. At this time, the hip appeared stable with range of motion and leg length appeared essentially equal. There was good shuck of the hip as well. The hip was then dislocated and the trial head, neck and broach was removed. The femur was thoroughly irrigated. At this time, the final femoral stem was then inserted and was found to be in good position and stable. Again, a trial head was affixed to the stem and the hip reduced. Again, the hip appeared stable to range of motion and leg lengths appeared essentially equal. The hip again was dislocated and the trial head removed. The final bipolar head was then affixed to the femoral stem. The wound was thoroughly irrigated and the hip reduced again. The hip appeared stable through range of motion and length makes appeared essentially equal. There was good shuck of the hip as well. The hip capsule was then closed with #1 Vicryl suture. The gluteus medius was then repaired back to the greater trochanter through bone tunnels with #5 FiberWire suture. The fascia was then closed with running #1 Vicryl sutures in the subcutaneous tissue was closed with interrupted Vicryl sutures. The skin was then closed with hanane and sterile dressings were applied. Patient was placed into a knee immobilizer and abduction pillow. Patient was transferred off the operating room table and placed supine on hospital bed. Patient was awoken from general anesthesia without complication. Disposition: Patient will be weightbearing as tolerated to the right lower extremity. Anterolateral hip precautions. No active abduction
[2018-02-27] MEDS ORDERED: Post-op Orders (for Pharmacy) OTHER STA (17:46)
--- NOTE | 2018-02-27 17:46 | P.PNOP ---
Subjective Interval history: POD#0 s/p R hip hemiarthroplasty Physical Exam Vital signs: Vital Signs 02/26/18 18:19 02/26/18 20:02 02/26/18 23:19 Temperature 99.2 F 99.0 F Pulse Rate 66 85 82 Respiratory Rate 18 17 17 Blood Pressure 110/76 136/66 Pulse Oximetry 99 95 97 02/27/18 03:30 02/27/18 07:26 02/27/18 11:07 Temperature 98.5 F 98.3 F 98.3 F Pulse Rate 80 71 77 Respiratory Rate 16 17 17 Blood Pressure 126/74 126/62 129/60 Pulse Oximetry 97 98 98 Intake & Output 02/26/18 02/27/18 02/27/18 18:59 06:59 18:59 Output Total 600 / 600 200 / 200 Balance -600 / -600 -200 / -200 Weight 68.039 kg 69.3 kg Output: Urine 600 / 600 200 / 200 Other: Date of Last Bowel Movement 02/25/18 02/24/18 Results - Labs CBC & Chem 7: 02/27/18 07:03 02/27/18 07:03 Laboratory Results - last 24 hr 02/26/18 02/26/18 02/26/18 17:15 17:15 17:15 WBC RBC Hgb Hct MCV MCH MCHC RDW Plt Count MPV Neut % (Auto) Lymph % (Auto) [place] % (Auto) Eos % (Auto) Baso % (Auto) Neut # (Auto) Lymph # (Auto) [place] # (Auto) Eos # (Auto) Baso # (Auto) WBC Differential Differential Comment PT 10.3 INR 1.0 APTT 27.9 Sodium 137 Potassium 3.5 Chloride 104 Carbon Dioxide 25.0 Anion Gap 8 BUN 8 Creatinine 0.77 Estimated GFR Greater than 89 Random Glucose 88 Calcium 8.3 L Magnesium 2.0 Total Bilirubin 0.6 AST 36 ALT 20 Alkaline Phosphatase 71 Total Protein 6.6 Albumin 2.7 L Blood Type Blood Type Recheck Antibody Screen MTS Gel Crossmatch 02/27/18 02/27/18 02/27/18 07:03 07:03 07:03 WBC 5.6 RBC 3.43 L Hgb 11.7 L Hct 33.8 L MCV 98.3 MCH 34.0 MCHC 34.6 RDW 15.1 Plt Count 164 MPV 7.7 Neut % (Auto) 71.1 H Lymph % (Auto) 16.5 [place] % (Auto) 10.8 H Eos % (Auto) 1.1 Baso % (Auto) 0.5 Neut # (Auto) 4.0 Lymph # (Auto) 0.9 L [place] # (Auto) 0.6 Eos # (Auto) 0.1 Baso # (Auto) 0.0 WBC Differential . Differential Comment Auto diff final PT INR APTT Sodium 138 Potassium 3.2 L Chloride 106 Carbon Dioxide 27.2 Anion Gap 5 BUN 9 Creatinine 0.68 Estimated GFR Greater than 89 Random Glucose 93 Calcium 8.6 Magnesium Total Bilirubin 0.6 AST 20 ALT 16 Alkaline Phosphatase 71 Total Protein 6.5 Albumin 2.5 L Blood Type O Positive Blood Type Recheck Required Antibody Screen Negative MTS Gel Crossmatch 02/27/18 15:15 WBC RBC Hgb Hct MCV MCH MCHC RDW Plt Count MPV Neut % (Auto) Lymph % (Auto) [place] % (Auto) Eos % (Auto) Baso % (Auto) Neut # (Auto) Lymph # (Auto) [place] # (Auto) Eos # (Auto) Baso # (Auto) WBC Differential Differential Comment PT INR APTT Sodium Potassium Chloride Carbon Dioxide Anion Gap BUN Creatinine Estimated GFR Random Glucose Calcium Magnesium Total Bilirubin AST ALT Alkaline Phosphatase Total Protein Albumin Blood Type Blood Type Recheck Antibody Screen MTS Gel Crossmatch See Detail - Imaging Impressions Hip CT 02/27/18 06:12 CONCLUSION: 1. Acute comminuted mildly displaced fracture involving the neck of the right proximal femur. 2. Mild soft tissue swelling involving the left groin. Assessment and Plan - Assessment and Plan 72-year-old gentleman now approximately 3 days status post left femoral endarterectomy for ischemic limb, POD#0 s/p right hip hemiarthroplasty (KNOWN R FOOT DROP PREOP) 1. Weightbearing as tolerated right lower extremity. Anterolateral hip precautions. No active abduction exercises. Patient should use knee immobilizer and/or abduction pillow when in bed. 2. Lovenox for DVT prophylaxis. Okay to resume Plavix tomorrow. 3. Physical therapy for mobilization 4. Dressing to remain in place until follow-up. 5. Patient to follow-up in office in approximately 2 weeks. Patient will likely require placement given this mechanical fall occurred immediately upon discharge from [facility] yesterday morning.
[2018-02-27] MEDS ORDERED: *morphine SULFATE 4 MG/ML PERIprocedure ONLY ONE (18:14)
[2018-02-27] MEDS ORDERED: Sugammadex Inj 200 MG/2 ML Vial IV.PUSH ONE (18:25)
--- NOTE | 2018-02-27 18:39 | XR ---
EXAM DATE: 02/27/2018 6:32 PM EST AGE/SEX: 72 years / Male INDICATIONS: Post op, right hip replacement. CLINICAL DATA: This is the patient's initial encounter. Patient reports that signs and symptoms have been present for 1 day and indicates a pain score of 0/10. MEDICAL/SURGICAL HISTORY: Non-responsive. Non-responsive. [place] [facility] [place]. . FINDINGS: Right hip arthroplasty in anatomic alignment. Hardware appears intact and well-positioned. No acute f racture. Immediate postsurgical soft tissue changes in the right hip. CONCLUSION: 1. Right hip arthroplasty in anatomic alignment without acute fracture. Electronically signed by: Rich Renner MD Board Certified Radiologist 02/27/2018 6:38 PM EST
[2018-02-27] MEDS ORDERED: ceFAZolin 1 GM Premix Inj 1 GM/50 ML PIGGYBACK IV.SIG ONE (19:04)
[2018-02-27] MEDS: ceFAZolin Inj 1 GM in Sodium Chlor 0.9% Inj 100 ML IV.SIG SCH (19:44)
[2018-02-28] MEDS: ceFAZolin Inj 1 GM in Sodium Chlor 0.9% Inj 100 ML IV.SIG SCH ×3 (03:35→20:23)
[2018-02-28] MEDS: Enoxaparin Inj 40 MG/0.4 ML Syringe SQ SCH (07:00)
--- NOTE | 2018-02-28 08:07 | P.PNOP ---
Subjective Interval history: The patient does not have any new complaints as far as the right leg is concerned. He was not tolerating the abduction pillow so he was being transitioned over to the knee immobilizer by the nurse. Physical Exam Vital signs: Vital Signs 02/27/18 11:07 02/27/18 17:43 02/27/18 17:45 Temperature 98.3 F 97.7 F Pulse Rate 77 91 H 90 Respiratory Rate 17 14 12 Blood Pressure 129/60 133/85 135/62 Pulse Oximetry 98 99 02/27/18 18:00 02/27/18 18:15 02/27/18 18:20 Temperature Pulse Rate 81 80 Respiratory Rate 20 22 Blood Pressure 133/59 L 131/63 Pulse Oximetry 98 98 98 02/27/18 18:30 02/27/18 18:45 02/27/18 19:00 Temperature Pulse Rate 74 73 68 Respiratory Rate 21 19 12 Blood Pressure 119/57 L 127/57 L 125/61 Pulse Oximetry 96 98 99 02/27/18 19:15 02/27/18 20:00 02/27/18 21:00 Temperature 98.0 F Pulse Rate 67 70 82 Respiratory Rate 15 15 12 Blood Pressure 127/59 L 135/67 103/58 L Pulse Oximetry 100 93 L 96 02/27/18 21:17 02/27/18 21:20 02/27/18 21:21 Temperature Pulse Rate 85 87 Respiratory Rate 16 22 Blood Pressure 119/61 132/65 Pulse Oximetry 95 02/27/18 22:00 02/27/18 23:00 02/28/18 00:00 Temperature 98.2 F Pulse Rate 79 87 85 Respiratory Rate 14 23 19 Blood Pressure 105/59 L 112/54 L 117/58 L Pulse Oximetry 92 L 98 96 02/28/18 01:00 02/28/18 02:00 02/28/18 03:00 Temperature Pulse Rate 92 H 84 90 Respiratory Rate 23 20 22 Blood Pressure 112/53 L 114/55 L 120/59 L Pulse Oximetry 96 95 95 02/28/18 04:00 02/28/18 06:00 Temperature 98.2 F Pulse Rate 78 77 Respiratory Rate 23 Blood Pressure 100/50 L Pulse Oximetry 95 Intake & Output 02/27/18 02/28/18 02/28/18 18:59 06:59 18:59 Intake Total 2300 / 2300 580 / 580 Output Total 550 / 550 200 / 200 Balance 1750 / 1750 380 / 380 Weight 68.039 kg Intake: IV 1000 / 1000 100 / 100 LR 1000 mL Inj 1,000 ML @ 30 1000 / 1000 mls/hr IV.CONT .Q24H ONE Rx#: [id number] Ancef Inj 1 GM In NS Inj 100 ML 100 / 100 @ 200 mls/hr IV.SIG Q8H [facility] Rx #:[id number] Oral 480 / 480 Anesthesia Amount 1300 / 1300 Output: Urine 200 / 200 Estimated Blood Loss 150 / 150 Urine Amount (Catheter) 200 / 200 200 / 200 Indwelling Urethral Catheter 200 / 200 200 / 200 Other: Date of Last Bowel Movement 02/24/18 Weight On Admission 69.3 kg Narrative: Right hip has a very small area, approximately dime sized of serosanguineous drainage on the dressing. Otherwise the dressing is dry. He has some mild swelling around the right hip with no erythema. The right calf has no swelling. He does have evidence of a preoperative foot drop although we can move the toes somewhat. He has brisk capillary refill about the toes on the right side. - Urinary Catheter Management Indwelling Urethral Catheter Cath placed during this visit: no Reason for continuing: Hourly intake/output Results - Labs CBC & Chem 7: 02/27/18 07:03 02/27/18 07:03 Laboratory Results - last 24 hr 02/27/18 02/27/18 02/27/18 07:03 07:03 15:15 Sodium 138 Potassium 3.2 L Chloride 106 Carbon Dioxide 27.2 Anion Gap 5 BUN 9 Creatinine 0.68 Estimated GFR Greater than 89 Random Glucose 93 Calcium 8.6 Total Bilirubin 0.6 AST 20 ALT 16 Alkaline Phosphatase 71 Total Protein 6.5 Albumin 2.5 L Nasal Screen MRSA (PCR) Blood Type O Positive Blood Type Recheck Required Antibody Screen Negative MTS Gel Crossmatch See Detail 02/27/18 22:00 Sodium Potassium Chloride Carbon Dioxide Anion Gap BUN Creatinine Estimated GFR Random Glucose Calcium Total Bilirubin AST ALT Alkaline Phosphatase Total Protein Albumin Nasal Screen MRSA (PCR) Not detected Blood Type Blood Type Recheck Antibody Screen MTS Gel Crossmatch - Imaging Impressions Hip X-Ray 02/27/18 00:00 CONCLUSION: 1. Right hip arthroplasty in anatomic alignment without acute fracture. Hip CT 01/11/19 06:12 CONCLUSION: 1. Acute comminuted mildly displaced fracture involving the neck of the right proximal femur. 2. Mild soft tissue swelling involving the left groin. Assessment and Plan - Assessment and Plan 72-year-old gentleman now approximately 4 days status post left femoral endarterectomy for ischemic limb, POD#1 s/p right hip hemiarthroplasty (KNOWN R FOOT DROP PREOP) 1. Weightbearing as tolerated right lower extremity. Anterolateral hip precautions. No active abduction exercises. Patient should use knee immobilizer and/or abduction pillow when in bed. 2. Lovenox for DVT prophylaxis. Okay to resume Plavix tomorrow. 3. Physical therapy for mobilization 4. Dressing to remain in place until follow-up. 5. Patient to follow-up in office in approximately 2 weeks. Patient will likely require placement given this mechanical fall occurred immediately upon discharge from [facility] yesterday morning.
[2018-02-28] MEDS: Senna/Docusate Sodium 8.6/50 MG Tablet PO SCH ×2 (08:43→20:24)
--- NOTE | 2018-02-28 17:10 | P.PN ---
Subjective Interval history: complains of pain post op site telemetry sinus rhtyhm Physical Exam Vital signs: Vital Signs 02/27/18 17:43 02/27/18 17:45 02/27/18 18:00 Temperature 97.7 F Pulse Rate 91 H 90 81 Respiratory Rate 14 12 20 Blood Pressure 133/85 135/62 133/59 L Pulse Oximetry 99 98 02/27/18 18:15 02/27/18 18:20 02/27/18 18:30 Temperature Pulse Rate 80 74 Respiratory Rate 22 21 Blood Pressure 131/63 119/57 L Pulse Oximetry 98 98 96 02/27/18 18:45 02/27/18 19:00 02/27/18 19:15 Temperature 98.0 F Pulse Rate 73 68 67 Respiratory Rate 19 12 15 Blood Pressure 127/57 L 125/61 127/59 L Pulse Oximetry 98 99 100 02/27/18 20:00 02/27/18 21:00 02/27/18 21:17 Temperature Pulse Rate 70 82 85 Respiratory Rate 15 12 16 Blood Pressure 135/67 103/58 L 119/61 Pulse Oximetry 93 L 96 95 02/27/18 21:20 02/27/18 21:21 02/27/18 22:00 Temperature 98.2 F Pulse Rate 87 79 Respiratory Rate 22 14 Blood Pressure 132/65 105/59 L Pulse Oximetry 92 L 02/27/18 23:00 02/28/18 00:00 02/28/18 01:00 Temperature Pulse Rate 87 85 92 H Respiratory Rate 23 19 23 Blood Pressure 112/54 L 117/58 L 112/53 L Pulse Oximetry 98 96 96 02/28/18 02:00 02/28/18 03:00 02/28/18 04:00 Temperature 98.2 F Pulse Rate 84 90 78 Respiratory Rate 20 22 23 Blood Pressure 114/55 L 120/59 L 100/50 L Pulse Oximetry 95 95 95 02/28/18 04:29 02/28/18 05:00 02/28/18 05:22 Temperature Pulse Rate 77 78 78 Respiratory Rate 20 21 20 Blood Pressure 100/50 L 124/58 L 109/53 L Pulse Oximetry 99 100 100 02/28/18 06:00 02/28/18 06:22 02/28/18 07:00 Temperature Pulse Rate 80 81 82 Respiratory Rate 27 H 19 25 H Blood Pressure 112/59 L Pulse Oximetry 97 100 99 02/28/18 07:22 02/28/18 08:00 02/28/18 08:22 Temperature 99.3 F Pulse Rate 85 80 81 Respiratory Rate 31 H 27 H 22 Blood Pressure 122/60 99/57 L Pulse Oximetry 63 L 84 L 02/28/18 09:00 02/28/18 09:22 02/28/18 10:00 Temperature Pulse Rate 80 79 79 Respiratory Rate 24 17 16 Blood Pressure 116/57 L Pulse Oximetry 64 L 80 L 85 L 02/28/18 10:22 02/28/18 11:00 02/28/18 11:22 Temperature Pulse Rate 83 73 79 Respiratory Rate 22 20 25 H Blood Pressure 117/56 L 114/54 L Pulse Oximetry 75 L 96 52 L 02/28/18 12:00 02/28/18 12:22 02/28/18 13:00 Temperature 99.3 F Pulse Rate 78 77 78 Respiratory Rate 17 17 17 Blood Pressure 120/60 Pulse Oximetry 100 100 100 02/28/18 13:22 02/28/18 14:00 02/28/18 14:22 Temperature Pulse Rate 81 77 84 Respiratory Rate 14 16 33 H Blood Pressure 146/67 H 146/66 H Pulse Oximetry 99 90 L 83 L 02/28/18 15:00 Temperature Pulse Rate 81 Respiratory Rate 21 Blood Pressure Pulse Oximetry Intake & Output 02/27/18 02/28/18 02/28/18 18:59 06:59 18:59 Intake Total 2300 / 2300 580 / 580 Output Total 550 / 550 200 / 200 450 / 450 Balance 1750 / 1750 380 / 380 -450 / -450 Weight 68.039 kg Intake: IV 1000 / 1000 100 / 100 LR 1000 mL Inj 1,000 ML @ 30 1000 / 1000 mls/hr IV.CONT .Q24H ONE Rx#: [id number] Ancef Inj 1 GM In NS Inj 100 ML 100 / 100 @ 200 mls/hr IV.SIG Q8H [facility] Rx #:[id number] Oral 480 / 480 Anesthesia Amount 1300 / 1300 Output: Urine 200 / 200 Estimated Blood Loss 150 / 150 Urine Amount (Catheter) 200 / 200 200 / 200 450 / 450 Indwelling Urethral Catheter 200 / 200 200 / 200 450 / 450 Other: Date of Last Bowel Movement 02/24/18 Weight On Admission 69.3 kg Narrative: awake and alert anicteric neck supple lungs- no rales regular rhythm abodmensoft Right hip - post op dressing in place- minimal sersanquinous drainage , mild swelling aroundhip area erythema. The right calf has no swelling. foot drop right left calf no swelling good epripheral pulses - Urinary Catheter Management Indwelling Urethral Catheter Cath placed during this visit: yes, but has since been removed by the nurse Reason for continuing: Decision to DC catheter Removal date: 02/28/18 Removal time: 11:10 Results - Labs CBC & Chem 7: 02/27/18 07:03 03/01/18 06:42 Laboratory Results - last 24 hr 02/27/18 22:00 Nasal Screen MRSA (PCR) Not detected - Imaging Impressions Hip X-Ray 02/27/18 00:00 CONCLUSION: 1. Right hip arthroplasty in anatomic alignment without acute fracture. Assessment and Plan - Plan This is a 72-year-old man with past medical history of PAD, status post left femoral endarterectomy secondary to ischemic limb 02/24/18 and discharged home on Plavix from a local hospital, was brought to the ED today for evaluation of right foot pain and injury following a mechanical fall. Right femoral neck fracture s/p right hip hemiarthroplasty 02/27 Baseline known right foot drop Status post mechanical fall - Orhtopedics ff - PT ff- WBAT - prn pain meds Peripheral artery disease -Status post left femoral endarterectomy - 02/24/18 -Plavix held on admission - per Orthopedics- may Resume Plavix tomorrow Hypokalemia - replace with KCL 30 meq po x 1 today - BMP in am DVT prophylaxis:on Lovenox CM ff- SNF vs home with home PT
[2018-03-01] MEDS: ceFAZolin Inj 1 GM in Sodium Chlor 0.9% Inj 100 ML IV.SIG SCH ×2 (03:56→12:13)
[2018-03-01] MEDS: Enoxaparin Inj 40 MG/0.4 ML Syringe SQ SCH (05:50)
[2018-03-01 07:48] LABS: Anion Gap 7 meq/L (5-15); Blood Urea Nitrogen 8 mg/dL (7-18); Calcium 8.4 mg/dL (8.5-10.1); Carbon Dioxide 26.2 meq/L (21.0-32.0); Chloride 104 meq/L (98-107); Glomerular Filtration Rate Greater Than 89 mL/min (>89); Glucose,Random 100 mg/dL (74-106); Potassium 3.7 meq/L (3.5-5.1); Sodium 137 meq/L (136-145)
[2018-03-01 07:56] VITALS: O2SAT 100
--- NOTE | 2018-03-01 08:11 | P.PNOP ---
Subjective Interval history: The patient has been noncompliant with the use of the brace and also the ice. The nurse has been instructing him on the need for this. Physical Exam Vital signs: Vital Signs 02/28/18 08:22 02/28/18 09:00 02/28/18 09:22 Temperature Pulse Rate 81 80 79 Respiratory Rate 22 24 17 Blood Pressure 99/57 L 116/57 L Pulse Oximetry 84 L 64 L 80 L 02/28/18 10:00 02/28/18 10:22 02/28/18 11:00 Temperature Pulse Rate 79 83 73 Respiratory Rate 16 22 20 Blood Pressure 117/56 L Pulse Oximetry 85 L 75 L 96 02/28/18 11:22 02/28/18 12:00 02/28/18 12:22 Temperature 99.3 F Pulse Rate 79 78 77 Respiratory Rate 25 H 17 17 Blood Pressure 114/54 L 120/60 Pulse Oximetry 52 L 100 100 02/28/18 13:00 02/28/18 13:22 02/28/18 14:00 Temperature Pulse Rate 78 81 77 Respiratory Rate 17 14 16 Blood Pressure 146/67 H Pulse Oximetry 100 99 90 L 02/28/18 14:22 02/28/18 15:00 02/28/18 15:22 Temperature Pulse Rate 84 81 88 Respiratory Rate 33 H 21 24 Blood Pressure 146/66 H 143/67 H Pulse Oximetry 83 L 54 L 02/28/18 16:00 02/28/18 16:22 02/28/18 17:00 Temperature 99.0 F Pulse Rate 84 90 90 Respiratory Rate 22 32 H 21 Blood Pressure 150/67 H Pulse Oximetry 68 L 81 L 93 L 02/28/18 17:41 02/28/18 18:00 02/28/18 18:22 Temperature Pulse Rate 88 86 87 Respiratory Rate 21 21 19 Blood Pressure 147/65 H 136/62 Pulse Oximetry 93 L 96 02/28/18 19:00 02/28/18 19:22 02/28/18 20:00 Temperature 99.5 F Pulse Rate 100 H 96 H 90 Respiratory Rate 35 H 29 H 19 Blood Pressure 134/60 Pulse Oximetry 100 85 L 86 L 02/28/18 20:22 02/28/18 21:00 02/28/18 21:22 Temperature Pulse Rate 96 H 87 86 Respiratory Rate 35 H 16 19 Blood Pressure 134/63 125/60 Pulse Oximetry 89 L 100 02/28/18 22:00 02/28/18 22:22 02/28/18 23:00 Temperature Pulse Rate 84 82 85 Respiratory Rate 19 16 15 Blood Pressure 136/62 Pulse Oximetry 100 100 02/28/18 23:22 03/01/18 00:00 03/01/18 00:22 Temperature 100.4 F H Pulse Rate 84 87 93 H Respiratory Rate 19 16 21 Blood Pressure 129/58 L 134/63 Pulse Oximetry 97 96 03/01/18 01:00 03/01/18 01:22 03/01/18 01:53 Temperature Pulse Rate 84 86 86 Respiratory Rate 17 Blood Pressure 111/57 L Pulse Oximetry 97 96 03/01/18 02:00 03/01/18 02:22 03/01/18 03:00 Temperature Pulse Rate 94 H 82 83 Respiratory Rate 22 18 Blood Pressure 145/64 H Pulse Oximetry 96 98 95 03/01/18 03:22 03/01/18 04:00 03/01/18 04:22 Temperature 101.1 F H Pulse Rate 81 84 83 Respiratory Rate 18 16 25 H Blood Pressure 140/63 115/59 L Pulse Oximetry 96 100 03/01/18 05:00 03/01/18 05:22 03/01/18 06:00 Temperature Pulse Rate 82 77 84 Respiratory Rate 33 H 15 27 H Blood Pressure 113/58 L Pulse Oximetry 99 98 100 03/01/18 06:22 03/01/18 07:00 03/01/18 07:22 Temperature 98.2 F Pulse Rate 83 78 80 Respiratory Rate 26 H 28 H 16 Blood Pressure 105/69 122/58 L Pulse Oximetry 100 100 100 Intake & Output 02/28/18 03/01/18 03/01/18 18:59 06:59 18:59 Intake Total 300 / 300 Output Total 450 / 450 Balance -450 / -450 300 / 300 Weight 68 kg 68 kg Intake: IV 300 / 300 Ancef Inj 1 GM In NS Inj 100 ML 300 / 300 @ 200 mls/hr IV.SIG Q8H [facility] Rx #:[id number] Output: Urine Amount (Catheter) 450 / 450 Indwelling Urethral Catheter 450 / 450 Narrative: The right leg has a dressing which is applied and clean with no drainage. There is mild swelling about the right hip. There is no tenderness about the right calf with no swelling. He has a warm foot. - Urinary Catheter Management Indwelling Urethral Catheter Cath placed during this visit: yes, but has since been removed by the nurse Reason for continuing: Decision to DC catheter Removal date: 02/28/18 Removal time: 11:10 Results - Labs CBC & Chem 7: 02/27/18 07:03 03/01/18 06:42 Laboratory Results - last 24 hr 03/01/18 06:42 Sodium 137 Potassium 3.7 Chloride 104 Carbon Dioxide 26.2 Anion Gap 7 BUN 8 Creatinine 0.69 Estimated GFR Greater than 89 Random Glucose 100 Calcium 8.4 L Assessment and Plan - Assessment and Plan 72-year-old gentleman now approximately 4 days status post left femoral endarterectomy for ischemic limb, POD#2 s/p right hip hemiarthroplasty (KNOWN R FOOT DROP PREOP) 1. Weightbearing as tolerated right lower extremity. Anterolateral hip precautions. No active abduction exercises. Patient should use knee immobilizer and/or abduction pillow when in bed. (I reinforced these precautions with the patient today) 2. Lovenox for DVT prophylaxis. Okay to resume Plavix tomorrow. 3. Physical therapy for mobilization 4. Dressing to remain in place until follow-up. 5. Patient to follow-up in office in approximately 2 weeks. Patient will likely require placement given this mechanical fall occurred immediately upon discharge from [facility] yesterday morning.
--- NOTE | 2018-03-01 08:18 | P.PN ---
Subjective Interval history: doing well pain controlled voiding, + flatus Physical Exam Vital signs: Vital Signs 02/28/18 08:22 02/28/18 09:00 02/28/18 09:22 Temperature Pulse Rate 81 80 79 Respiratory Rate 22 24 17 Blood Pressure 99/57 L 116/57 L Pulse Oximetry 84 L 64 L 80 L 02/28/18 10:00 02/28/18 10:22 02/28/18 11:00 Temperature Pulse Rate 79 83 73 Respiratory Rate 16 22 20 Blood Pressure 117/56 L Pulse Oximetry 85 L 75 L 96 02/28/18 11:22 02/28/18 12:00 02/28/18 12:22 Temperature 99.3 F Pulse Rate 79 78 77 Respiratory Rate 25 H 17 17 Blood Pressure 114/54 L 120/60 Pulse Oximetry 52 L 100 100 02/28/18 13:00 02/28/18 13:22 02/28/18 14:00 Temperature Pulse Rate 78 81 77 Respiratory Rate 17 14 16 Blood Pressure 146/67 H Pulse Oximetry 100 99 90 L 02/28/18 14:22 02/28/18 15:00 02/28/18 15:22 Temperature Pulse Rate 84 81 88 Respiratory Rate 33 H 21 24 Blood Pressure 146/66 H 143/67 H Pulse Oximetry 83 L 54 L 02/28/18 16:00 02/28/18 16:22 02/28/18 17:00 Temperature 99.0 F Pulse Rate 84 90 90 Respiratory Rate 22 32 H 21 Blood Pressure 150/67 H Pulse Oximetry 68 L 81 L 93 L 02/28/18 17:41 02/28/18 18:00 02/28/18 18:22 Temperature Pulse Rate 88 86 87 Respiratory Rate 21 21 19 Blood Pressure 147/65 H 136/62 Pulse Oximetry 93 L 96 02/28/18 19:00 02/28/18 19:22 02/28/18 20:00 Temperature 99.5 F Pulse Rate 100 H 96 H 90 Respiratory Rate 35 H 29 H 19 Blood Pressure 134/60 Pulse Oximetry 100 85 L 86 L 02/28/18 20:22 02/28/18 21:00 02/28/18 21:22 Temperature Pulse Rate 96 H 87 86 Respiratory Rate 35 H 16 19 Blood Pressure 134/63 125/60 Pulse Oximetry 89 L 100 02/28/18 22:00 02/28/18 22:22 02/28/18 23:00 Temperature Pulse Rate 84 82 85 Respiratory Rate 19 16 15 Blood Pressure 136/62 Pulse Oximetry 100 100 02/28/18 23:22 03/01/18 00:00 03/01/18 00:22 Temperature 100.4 F H Pulse Rate 84 87 93 H Respiratory Rate 19 16 21 Blood Pressure 129/58 L 134/63 Pulse Oximetry 97 96 03/01/18 01:00 03/01/18 01:22 03/01/18 01:53 Temperature Pulse Rate 84 86 86 Respiratory Rate 17 Blood Pressure 111/57 L Pulse Oximetry 97 96 03/01/18 02:00 03/01/18 02:22 03/01/18 03:00 Temperature Pulse Rate 94 H 82 83 Respiratory Rate 22 18 Blood Pressure 145/64 H Pulse Oximetry 96 98 95 03/01/18 03:22 03/01/18 04:00 03/01/18 04:22 Temperature 101.1 F H Pulse Rate 81 84 83 Respiratory Rate 18 16 25 H Blood Pressure 140/63 115/59 L Pulse Oximetry 96 100 03/01/18 05:00 03/01/18 05:22 03/01/18 06:00 Temperature Pulse Rate 82 77 84 Respiratory Rate 33 H 15 27 H Blood Pressure 113/58 L Pulse Oximetry 99 98 100 03/01/18 06:22 03/01/18 07:00 03/01/18 07:22 Temperature 98.2 F Pulse Rate 83 78 80 Respiratory Rate 26 H 28 H 16 Blood Pressure 105/69 122/58 L Pulse Oximetry 100 100 100 03/01/18 08:00 03/01/18 08:02 Temperature Pulse Rate 76 73 Respiratory Rate 15 Blood Pressure Pulse Oximetry 100 Intake & Output 02/28/18 03/01/18 03/01/18 18:59 06:59 18:59 Intake Total 300 / 300 0 / 0 Output Total 450 / 450 Balance -450 / -450 300 / 300 0 / 0 Weight 68 kg 68 kg Intake: IV 300 / 300 Ancef Inj 1 GM In NS Inj 100 ML 300 / 300 @ 200 mls/hr IV.SIG Q8H [facility] Rx #:[id number] Oral 0 / 0 Output: Urine Amount (Catheter) 450 / 450 Indwelling Urethral Catheter 450 / 450 Narrative: awake and alert anicteric neck supple lungs- no rales regular rhythm abodmen soft Right hip - post op dressing in place-no erythema. right calf has no swelling. foot drop right left calf no swelling good epripheral pulses - Urinary Catheter Management Indwelling Urethral Catheter Cath placed during this visit: yes, but has since been removed by the nurse Reason for continuing: Decision to DC catheter Removal date: 02/28/18 Removal time: 11:10 Results - Labs CBC & Chem 7: 02/27/18 07:03 03/01/18 06:42 Laboratory Results - last 24 hr 03/01/18 06:42 Sodium 137 Potassium 3.7 Chloride 104 Carbon Dioxide 26.2 Anion Gap 7 BUN 8 Creatinine 0.69 Estimated GFR Greater than 89 Random Glucose 100 Calcium 8.4 L Assessment and Plan - Plan This is a 72-year-old man with past medical history of PAD, status post left femoral endarterectomy secondary to ischemic limb 02/24/18 and discharged home on Plavix from a local hospital, was brought to the ED today for evaluation of right foot pain and injury following a mechanical fall. Right femoral neck fracture s/p right hip hemiarthroplasty 02/27 Baseline known right foot drop Status post mechanical fall - Orhtopedics ff - PT ff- WBAT - prn pain meds - Weightbearing as tolerated right lower extremity. Anterolateral hip precautions. No active abduction exercises. Patient should use knee immobilizer and/or abduction pillow when in bed. (I reinforced these precautions with the patient today) Peripheral artery disease -Status post left femoral endarterectomy - 02/24/18 -Plavix restarted today Hypokalemia- corrected DVT prophylaxis:on Lovenox CM ff- SNF - per Ortho notes need SNF cleared by ortho - scripts written by them for po percocet 5/325 mg prn for pain q 4 ASA 81 mg daily
[2018-03-01] MEDS: Senna/Docusate Sodium 8.6/50 MG Tablet PO SCH (09:04)
--- NOTE | 2018-03-01 10:24 | P.DS ---
Date of admission: 02/26/18 17:38 Primary care physician: [facility] Brief History from admission: 72-year-old -[place] male for past medical history of PAD, status post left femoral endarterectomy secondary to ischemic limb 02/24/18 and discharged home on Plavix from a local hospital, was brought to the ED today for evaluation of right foot pain and injury following a mechanical fall. Patient state, as he stood up to go to [place], he tripped and fell onto the ground hitting the right side of his hip and denies any head trauma or loss of consciousness. Immediately noted severe right lower extremity pain and was unable to stand up. The pain was rated 10 out of 10 in intensity. He denies any headaches, chest pain or shortness of breath. Patient also has a history of right lower extremity footdrop. Otherwise is stable. Patient update on day of discharge: motivated with more therapy DS: Summary Hospital Course: 72-year-old man with past medical history of PAD, status post left femoral endarterectomy secondary to ischemic limb 02/24/18 and discharged home on Plavix from a local hospital, was brought to the ED today for evaluation of right foot pain and injury following a mechanical fall. Right femoral neck fracture s/p right hip hemiarthroplasty 02/27 Baseline known right foot drop Status post mechanical fall - Orhtopedics ff - PT ff- WBAT - prn pain meds - Weightbearing as tolerated right lower extremity. Anterolateral hip precautions. No active abduction exercises. Patient should use knee immobilizer and/or abduction pillow when in bed. (I reinforced these precautions with the patient today) Peripheral artery disease -Status post left femoral endarterectomy - 02/24/18 -Plavix restarted today Hypokalemia- corrected DVT prophylaxis:here on Lovenox CM ff- SNF - per Ortho notes need SNF cleared by ortho - scripts written by them for po percocet 5/325 mg prn for pain q 4 ASA 81 mg daily - Time Spent with Patient Total time spent providing and/or coordinating discharge services: - Quality: VTE Deep Vein Thrombosis/Pulmonary Embolism Present on Admission: No Exam Vital signs: Vital Signs 02/28/18 11:00 02/28/18 11:22 02/28/18 12:00 Temperature 99.3 F Pulse Rate 73 79 78 Respiratory Rate 20 25 H 17 Blood Pressure 114/54 L Pulse Oximetry 96 52 L 100 02/28/18 12:22 02/28/18 13:00 02/28/18 13:22 Temperature Pulse Rate 77 78 81 Respiratory Rate 17 17 14 Blood Pressure 120/60 146/67 H Pulse Oximetry 100 100 99 02/28/18 14:00 02/28/18 14:22 02/28/18 15:00 Temperature Pulse Rate 77 84 81 Respiratory Rate 16 33 H 21 Blood Pressure 146/66 H Pulse Oximetry 90 L 83 L 02/28/18 15:22 02/28/18 16:00 02/28/18 16:22 Temperature 99.0 F Pulse Rate 88 84 90 Respiratory Rate 24 22 32 H Blood Pressure 143/67 H 150/67 H Pulse Oximetry 54 L 68 L 81 L 02/28/18 17:00 02/28/18 17:41 02/28/18 18:00 Temperature Pulse Rate 90 88 86 Respiratory Rate 21 21 21 Blood Pressure 147/65 H Pulse Oximetry 93 L 93 L 02/28/18 18:22 02/28/18 19:00 02/28/18 19:22 Temperature Pulse Rate 87 100 H 96 H Respiratory Rate 19 35 H 29 H Blood Pressure 136/62 134/60 Pulse Oximetry 96 100 85 L 02/28/18 20:00 02/28/18 20:22 02/28/18 21:00 Temperature 99.5 F Pulse Rate 90 96 H 87 Respiratory Rate 19 35 H 16 Blood Pressure 134/63 Pulse Oximetry 86 L 89 L 02/28/18 21:22 02/28/18 22:00 02/28/18 22:22 Temperature Pulse Rate 86 84 82 Respiratory Rate 19 19 16 Blood Pressure 125/60 136/62 Pulse Oximetry 100 100 100 02/28/18 23:00 02/28/18 23:22 03/01/18 00:00 Temperature 100.4 F H Pulse Rate 85 84 87 Respiratory Rate 15 19 16 Blood Pressure 129/58 L Pulse Oximetry 97 03/01/18 00:22 03/01/18 01:00 03/01/18 01:22 Temperature Pulse Rate 93 H 84 86 Respiratory Rate 21 17 Blood Pressure 134/63 111/57 L Pulse Oximetry 96 97 96 03/01/18 01:53 03/01/18 02:00 03/01/18 02:22 Temperature Pulse Rate 86 94 H 82 Respiratory Rate 22 Blood Pressure 145/64 H Pulse Oximetry 96 98 03/01/18 03:00 03/01/18 03:22 03/01/18 04:00 Temperature 101.1 F H Pulse Rate 83 81 84 Respiratory Rate 18 18 16 Blood Pressure 140/63 Pulse Oximetry 95 96 03/01/18 04:22 03/01/18 05:00 03/01/18 05:22 Temperature Pulse Rate 83 82 77 Respiratory Rate 25 H 33 H 15 Blood Pressure 115/59 L 113/58 L Pulse Oximetry 100 99 98 03/01/18 06:00 03/01/18 06:22 03/01/18 07:00 Temperature Pulse Rate 84 83 78 Respiratory Rate 27 H 26 H 28 H Blood Pressure 105/69 Pulse Oximetry 100 100 100 03/01/18 07:22 03/01/18 08:00 03/01/18 08:02 Temperature 98.2 F Pulse Rate 80 76 73 Respiratory Rate 16 15 Blood Pressure 122/58 L Pulse Oximetry 100 100 03/01/18 08:22 03/01/18 09:00 03/01/18 09:22 Temperature Pulse Rate 78 75 83 Respiratory Rate 22 20 18 Blood Pressure 117/70 126/58 L Pulse Oximetry 100 100 100 03/01/18 10:00 Temperature Pulse Rate 82 Respiratory Rate 15 Blood Pressure Pulse Oximetry 100 Intake & Output 02/28/18 03/01/18 03/01/18 18:59 06:59 18:59 Intake Total 300 / 300 0 / 0 Output Total 450 / 450 Balance -450 / -450 300 / 300 0 / 0 Weight 68 kg 68 kg Intake: IV 300 / 300 Ancef Inj 1 GM In NS Inj 100 ML 300 / 300 @ 200 mls/hr IV.SIG Q8H [facility] Rx #:[id number] Oral 0 / 0 Output: Urine Amount (Catheter) 450 / 450 Indwelling Urethral Catheter 450 / 450 Results Labs on day of discharge: Labs from last 24 hours 03/01/18 06:42 Sodium 137 Potassium 3.7 Chloride 104 Carbon Dioxide 26.2 Anion Gap 7 BUN 8 Creatinine 0.69 Estimated GFR Greater than 89 Random Glucose 100 Calcium 8.4 L - Impressions ITS Impressions Femur X-Ray 02/26/18 15:46 CONCLUSION: Acute displaced and angulated basicervical right proximal femur fracture. Pelvis X-Ray 02/26/18 15:46 CONCLUSION: Moderately angulated basicervical right femoral neck fracture Wrist X-Ray 02/26/18 15:46 CONCLUSION: 1. No acute fracture or dislocation. 2. Mild degenerative changes involving the radiocarpal space. Chest X-Ray 02/26/18 17:03 CONCLUSION: No acute cardiopulmonary findings. Hip X-Ray 02/27/18 00:00 CONCLUSION: 1. Right hip arthroplasty in anatomic alignment without acute fracture. Hip CT 02/27/18 06:12 CONCLUSION: 1. Acute comminuted mildly displaced fracture involving the neck of the right proximal femur. 2. Mild soft tissue swelling involving the left groin. Discharge Plan - Discharge Disposition Patient Disposition: Discharge to SNF - Discharge Condition Condition: Stable - Discharge Order Discharge Orders: Discharge Order (Routine); Ordered 03/01/18 Ordered By: Judah Guerrero - Physicians Team Primary Care Provider: [facility],Physician 's Attending Provider: Judah Guerrero Other Providers: Jodie Joe MD ; [facility] Patient Printed Instructions: Joint Replacement Surgery (DC)
[2018-03-01 11:05] VITALS: RESP 19
[2018-03-01 12:34] VITALS: BP 156/74; PULSE 84; TEMP 98.8
== END 2018-03-01 13:30 | DRG 470 ==
LOC: NEPC 15:19 → NEDA 17:38 → N06 19:40 → N03 02-27 15:39
PROVIDERS: ADMIT Internal Medicine; ATTEND Internal Medicine
CPT/HCPCS: 71010; 71045; 72170; 73110; 73502; 73552; 73700; 80048; 80053; 83735; 85025; 85610; 85730; 86850; 86900; 86901; 86923; 87641; 90774; 90784; 93005; 94150; 96374; 97163; 99285; C1776; C8952; J0131; J0690; J1650; J2270; J3010; J3370; J7120; L1830